=== PATIENT | male | born 1980 | race Two or more races ===

== ENCOUNTER 2021-03-09 18:05 | Emergency (ER) | payer MEDICAID, OTHER ==
[~2021-03-09] VITALS: Ht 162.6 cm; Wt 74.4 kg
[2021-03-09 18:14] VITALS: BP 135/83
--- NOTE | 2021-03-09 18:28 | NUR ---
LOGAN RODRIGUEZ AT BEDSIDE EXAMINING PT
[2021-03-09] MEDS ORDERED: diphenhydrAMINE 50 MG CAP PO ONE (18:40)
[2021-03-09] MEDS ORDERED: predniSONE 20 MG TAB PO ONE (18:40)
--- NOTE | 2021-03-09 18:45 | NUR ---
40 Y/O MALE C/O RASH ON TEDDY ARM, BACK, FACE RIGHT EYE BLURRY X 4 DAYS. BLOOD SUGAR 307 AT THIS TIME.VA: RIGHT EYE 20/25, LEFT EYE 20/30, BOTH EYES 20/20. PMH: SALOME MEJIA
[2021-03-09] MEDS ORDERED: PRED20TA5 PO (18:54)
[2021-03-09] MEDS ORDERED: LORA10TA19 PO (18:54)
[2021-03-09] MEDS ORDERED: PRAM177L7 TP (18:54)
[2021-03-09 19:22] VITALS: BP 135/83
--- NOTE | 2021-03-09 19:22 | NUR ---
Patient discharged with v/s stable. Written and verbal after care instructions given and explained. Patient alert, oriented and verbalized understanding of instructions. Ambulatory with steady gait. All questions addressed prior to discharge. ID band removed. Patient advised to follow up with PMD. Rx of CLARITIN, CALADRYL AND DELTASONE, given. Patient educated on indication of medication including possible reaction and side effects. Opportunity to ask questions provided and answered.
== END 2021-03-09 19:22 | disposition home or self-care (01) ==
LOC: MED 18:05
DX: R21 Rash and other nonspecific skin eruption (principal); L29.9 Pruritus, unspecified; E11.9 Type 2 diabetes mellitus without complications; Z79.899 Other long term (current) drug therapy
CPT/HCPCS: 99283; J7512; Q0163